=== PATIENT | male | born 1990 | race Caucasian/White ===

== ENCOUNTER 2021-05-14 16:00 | Emergency (ER) | payer MEDICAID ==
[~2021-05-14] VITALS: Ht 165.1 cm; Wt 82.0 kg
[2021-05-14 16:10] VITALS: BP 148/86
[2021-05-14 18:12] LABS: BASOPHILS % 0.4 % (0.0-2.0); EOSINOPHILS % 0.9 % (0.0-5.0); HEMATOCRIT. 42.3 % (42.0-52.0); HEMOGLOBIN. 14.3 g/dL (14.0-18.0); LYMPHOCYTES % 22.7 % (20.0-50.0); MEAN CORPUSCULAR VOLUME 85.8 fL (80.0-94.0); MEAN PLATELET VOLUME 8.8 fl (7.4-10.4); MONOCYTES % 6.1 % (2.0-8.0); NEUTROPHILS % 69.9 % (40.0-76.0); PLATELET 208 x1000/uL (130-400); RED BLOOD CELL COUNT 4.93 mill/uL (4.7-6.1)
[2021-05-14] MEDS ORDERED: EMTRICITABINE 200MG CAPSULE PO ONE (18:15)
[2021-05-14] MEDS ORDERED: TETANUS, DIPHTHERIA, PERTUSSIS VAC/PF 0.5ML (>10YR OLD) IM ONE (18:15)
[2021-05-14 18:17] LABS: CHLORIDE 108 mEq/L (98-107)
[2021-05-14] MEDS ORDERED: EMTR200C3 MT ×3 (18:19→18:20)
[2021-05-14 18:33] LABS: HEPATITIS B SURFACE AB < 3.1 mIU/mL
[2021-05-14 19:00] LABS: HEPATITIS B SURFACE ANTIGEN NEGATIVE
[2021-05-16 08:08] LABS: HIV SCREEN 4G Non Reactive (Non Reactive)
== END 2021-05-14 19:31 | disposition home or self-care (01) ==
LOC: ER 16:00
DX: S91.331A Puncture wound without foreign body, right foot, initial encounter (principal); W22.8XXA Striking against or struck by other objects, initial encounter; Y93.01 Activity, walking, marching and hiking; Y92.832 Beach as the place of occurrence of the external cause
CPT/HCPCS: 36415; 73630; 80053; 85025; 86705; 86706; 86709; 86803; 87340; 87389; 90471; 90715; 99284